=== PATIENT | female | born 1960 | race Two or more races ===

== ENCOUNTER 2020-09-05 21:12 | Inpatient (IN) | payer MEDICAID ==
[~2020-09-05] VITALS: Ht 162.6 cm; Wt 82.6 kg
[2020-09-05] MEDS ORDERED: NICARDIPINE 40MG/200ML PREMIX 200 ML IV STA (21:27)
[2020-09-05] MEDS ORDERED: PROPOFOL 10MG/ML 100ML 100 ML IV STA (21:27)
[2020-09-05] MEDS ORDERED: ETOMIDATE 2MG/ML 10ML VIAL IV ONE (21:30)
[2020-09-05] MEDS ORDERED: LEVETIRACETAM 500MG PREMIX 100 ML IV ONE (21:30)
[2020-09-05] MEDS ORDERED: SODIUM CHLORIDE 0.9% 10ML VIAL ONE (21:30)
[2020-09-05] MEDS ORDERED: VECURONIUM BROMIDE 10 MG/VIAL IV ONE (21:30)
[2020-09-05] MEDS ORDERED: NICARDIPINE 100 MG in SODIUM CHLORIDE 0.9% 60 ML IV PRN (22:45)
[2020-09-05] MEDS ORDERED: MORPHINE SULFATE 2 MG/ML CPJ (NOT FOR IM USE) IV PRN (22:45)
[2020-09-05] MEDS ORDERED: DEXAMETHASONE 10 MG/ML VIAL IV ONE (23:00)
[2020-09-05] MEDS: DEXT 5%/LACTATED RINGERS 1,000 ML IV SCH (23:00)
[2020-09-05] MEDS ORDERED: MANNITOL 20% (20GM/100ML) BAG 500ML PREMIX IV NR (23:00)
[2020-09-05] MEDS ORDERED: IOHEXOL-350 100 ML BOTTLE ONE (23:08)
[2020-09-05 23:33] LABS: BG CARBOXYHEMOGLOBIN 0.3 % (0.5-1.5); BG DEOXYHEMOGLOBIN 0.4 % (0.0-5.0); BG FRACTION INSPIRED OXYGEN 100; BG HCO3 ACT 26.4 mmol/L (22.0-26.0); BG METHEMOGLOBIN 0.5 % (0.0-1.5); BG OXYGEN SATURATION 99.6 % (92.0-98.5); BG OXYHEMOGLOBIN 98.8 % (94.0-97.0); BG PH 7.349 (7.350-7.450); BG PO2 336.4 mmHg (75.0-100.0); BG SAMPLE SITE LEFT RADIAL; BG TOTAL HEMOGLOBIN 16.4 g/dL (12.0-18.0); BG VENT MODE VENT - AC
[2020-09-05 23:50] LABS: HEMATOCRIT. 47.3 % (36.0-48.0); HEMOGLOBIN. 15.4 g/dL (12.0-16.0); MEAN CORPUSCULAR HEMOGLOBIN 31.2 pg (28.0-32.0); MEAN CORPUSCULAR VOLUME 95.9 fL (81.0-99.0); MEAN PLATELET VOLUME 10.1 fl (7.4-10.4); PLATELET 264 x1000/uL (130-400); RED BLOOD CELL COUNT 4.94 mill/uL (4.2-5.4); RED CELL DISTRIBUTION WIDTH 13.7 % (11.6-14.6)
[2020-09-05 23:53] LABS: CHLORIDE 103 mEq/L (98-107)
[2020-09-05 23:57] LABS: PARTIAL THROMBOPLASTIN TIME 25.6 sec (23.4-31.0); PROTHROMBIN TIME 10.6 sec (9.6-11.0)
[2020-09-06] VITALS (52 sets, daily range): BP systolic 0–146; BP diastolic -3–96
[2020-09-06 01:11] LABS: CLARITY URINE CLEAR (CLEAR); COLOR URINE YELLOW (YELLOW); KETONES URINE NEGATIVE (NEGATIVE); LEUKOCYTE ESTERASE URINE NEGATIVE (NEGATIVE); NITRITE URINE NEGATIVE (NEGATIVE); OCCULT BLOOD URINE TRACE (NEGATIVE); PH URINE 6.5 (4.5-8.0); PROTEIN URINE 2+ (NEGATIVE); SPECIFIC GRAVITY URINE 1.021 (1.005-1.030); UROBILINOGEN URINE 0.2 E.U./dL (0.2-1.0)
[2020-09-06] MEDS: DEXAMETHASONE 4MG/ML 1ML VIAL IV SCH ×4 (02:00→23:23)
[2020-09-06 04:13] LABS: ATYPICAL LYMPHOCYTES 2
[2020-09-06 04:14] LABS: PLATELET ESTIMATE NORMAL
[2020-09-06] MEDS ORDERED: NICARDIPINE 100 MG in SODIUM CHLORIDE 0.9% 60 ML IV PRN ×2 (07:30→10:00)
[2020-09-06] MEDS ORDERED: MORPHINE SULFATE 2 MG/ML CPJ (NOT FOR IM USE) IV SCH (08:15)
[2020-09-06] MEDS ORDERED: ONDANSETRON HCL 4MG/2ML INJ IV PRN (09:45)
[2020-09-06] MEDS: PANTOPRAZOLE SODIUM 40 MG/VIAL IV SCH (10:21)
[2020-09-06] MEDS: LEVETIRACETAM 500MG PREMIX 100 ML IV SCH ×2 (11:47→23:21)
[2020-09-06] MEDS: ACETAMINOPHEN 650MG/20.3ML UDC PO PRN ×2 (11:47→21:21)
[2020-09-06] MEDS: NICARDIPINE 100 MG in SODIUM CHLORIDE 0.9% 60 ML IV PRN (15:47)
[2020-09-06] MEDS: DEXT 5%/LACTATED RINGERS 1,000 ML IV SCH (17:26)
[2020-09-06] MEDS: MORPHINE SULFATE 2 MG/ML CPJ (NOT FOR IM USE) IV PRN (21:20)
[2020-09-07] VITALS (90 sets, daily range): BP systolic -1–173; BP diastolic -1–90
[2020-09-07] MEDS: ACETAMINOPHEN 650MG/20.3ML UDC PO PRN ×3 (03:35→22:23)
[2020-09-07] MEDS: MORPHINE SULFATE 2 MG/ML CPJ (NOT FOR IM USE) IV PRN ×3 (03:47→21:39)
[2020-09-07] MEDS: DEXAMETHASONE 4MG/ML 1ML VIAL IV SCH ×3 (05:34→17:52)
[2020-09-07 06:23] LABS: BASOPHILS % 0.1 % (0.0-2.0); HEMOGLOBIN. 14.4 g/dL (12.0-16.0); MEAN CORPUSCULAR HEMOGLOBIN 31.8 pg (28.0-32.0); MEAN CORPUSCULAR VOLUME 94.8 fL (81.0-99.0); MEAN PLATELET VOLUME 9.9 fl (7.4-10.4); MONOCYTES % 3.7 % (2.0-8.0); NEUTROPHILS % 87.2 % (40.0-76.0); PLATELET 205 x1000/uL (130-400); RED BLOOD CELL COUNT 4.53 mill/uL (4.2-5.4); RED CELL DISTRIBUTION WIDTH 14.2 % (11.6-14.6)
[2020-09-07 06:33] LABS: CHLORIDE 108 mEq/L (98-107)
[2020-09-07] MEDS: DEXT 5%/LACTATED RINGERS 1,000 ML IV SCH (08:43)
[2020-09-07] MEDS: PANTOPRAZOLE SODIUM 40 MG/VIAL IV SCH (08:43)
[2020-09-07] MEDS: LEVETIRACETAM 500MG PREMIX 100 ML IV SCH ×2 (09:50→21:50)
[2020-09-07] MEDS ORDERED: POTASSIUM CHLORIDE INJ 40 MEQ in DEXT 5% WATER 500 ML IV SCH (10:00)
[2020-09-07] MEDS ORDERED: IOHEXOL-300 100 ML BOTTLE ONE (21:28)
[2020-09-07] MEDS: NICARDIPINE 100 MG in SODIUM CHLORIDE 0.9% 60 ML IV PRN (22:00)
[2020-09-08] VITALS (98 sets, daily range): BP systolic 4–157; BP diastolic 4–78
[2020-09-08] MEDS: DEXAMETHASONE 4MG/ML 1ML VIAL IV SCH ×3 (00:21→11:11)
[2020-09-08] MEDS: MORPHINE SULFATE 2 MG/ML CPJ (NOT FOR IM USE) IV PRN ×3 (02:35→17:06)
[2020-09-08] MEDS: DEXT 5%/LACTATED RINGERS 1,000 ML IV SCH ×2 (08:01→23:12)
[2020-09-08] MEDS: LEVETIRACETAM 500MG PREMIX 100 ML IV SCH ×2 (08:57→21:51)
[2020-09-08] MEDS: PANTOPRAZOLE SODIUM 40 MG/VIAL IV SCH (08:57)
[2020-09-08] MEDS: ACETAMINOPHEN 650MG/20.3ML UDC PO PRN ×2 (11:25→22:14)
[2020-09-08] MEDS: NICARDIPINE 100 MG in SODIUM CHLORIDE 0.9% 60 ML IV PRN ×2 (12:16→19:05)
[2020-09-08 12:32] LABS: CHLORIDE 110 mEq/L (98-107)
[2020-09-08] MEDS: MORPHINE SULFATE 4 MG/ML CPJ (NOT FOR IM USE) IV PRN ×2 (18:58→22:01)
[2020-09-08] MEDS: IPRATROPIUM/ALBUTEROL 0.5-3(2.5)MG/3ML NEB HHN SCH (20:52)
[2020-09-08] MEDS: PROPOFOL 10MG/ML 100ML 100 ML IV PRN (23:13)
[2020-09-09] VITALS (109 sets, daily range): BP systolic 1–145; BP diastolic 1–77
[2020-09-09] MEDS: MORPHINE SULFATE 2 MG/ML CPJ (NOT FOR IM USE) IV PRN ×2 (01:53→09:36)
[2020-09-09] MEDS: NICARDIPINE 100 MG in SODIUM CHLORIDE 0.9% 60 ML IV PRN ×2 (01:53→09:32)
[2020-09-09] MEDS: MORPHINE SULFATE 4 MG/ML CPJ (NOT FOR IM USE) IV PRN ×2 (03:09→06:16)
[2020-09-09] MEDS: PROPOFOL 10MG/ML 100ML 100 ML IV PRN ×2 (04:55→08:21)
[2020-09-09 05:15] LABS: CHLORIDE 110 mEq/L (98-107)
[2020-09-09 06:21] LABS: HEMATOCRIT. 44.2 % (36.0-48.0); HEMOGLOBIN. 14.6 g/dL (12.0-16.0); MEAN CORPUSCULAR HEMOGLOBIN 31.7 pg (28.0-32.0); PLATELET 209 x1000/uL (130-400); RED CELL DISTRIBUTION WIDTH 13.9 % (11.6-14.6)
[2020-09-09 07:24] LABS: BG BASE EXCESS -3.3 mmol/L (-2.0-2.0); BG CARBOXYHEMOGLOBIN 0.6 % (0.5-1.5); BG DEOXYHEMOGLOBIN 2.2 % (0.0-5.0); BG FRACTION INSPIRED OXYGEN 50; BG HCO3 ACT 19.8 mmol/L (22.0-26.0); BG METHEMOGLOBIN 0.6 % (0.0-1.5); BG OXYGEN SATURATION 97.8 % (92.0-98.5); BG OXYHEMOGLOBIN 96.6 % (94.0-97.0); BG PCO2 30.8 mmHg (35.0-45.0); BG PH 7.427 (7.350-7.450); BG PO2 100.5 mmHg (75.0-100.0); BG SAMPLE SITE RIGHT RADIAL; BG TOTAL HEMOGLOBIN 15.1 g/dL (12.0-18.0); BG VENT MODE VENT - AC
[2020-09-09] MEDS: IPRATROPIUM/ALBUTEROL 0.5-3(2.5)MG/3ML NEB HHN SCH ×2 (07:56→15:34)
[2020-09-09] MEDS ORDERED: FENTANYL CITRATE/PF 2,500 MCG in SODIUM CHLORIDE 0.9% 200 ML IV PRN (08:00)
[2020-09-09] MEDS: LEVETIRACETAM 500MG PREMIX 100 ML IV SCH ×2 (08:13→20:59)
[2020-09-09] MEDS: PANTOPRAZOLE SODIUM 40 MG/VIAL IV SCH (08:13)
[2020-09-09] MEDS ORDERED: CEFEPIME 1,000 MG in DEXTROSE 5% WATER 50 ML IV SCH (10:00)
[2020-09-09] MEDS ORDERED: DEXTROSE 50% WATER 50ML SYRINGE IV PRN (10:00)
[2020-09-09] MEDS: ACETAMINOPHEN 650MG/20.3ML UDC PO PRN (10:37)
[2020-09-09] MEDS ORDERED: DIGOXIN 500MCG/2ML AMP IV NR (11:00)
[2020-09-09] MEDS: CEFEPIME 1,000 MG in DEXTROSE 5% WATER 50 ML IV SCH ×2 (11:07→21:02)
[2020-09-09] MEDS: BLOOD SUGAR DIAGNOSTIC STRIP TEST SCH ×2 (12:00→18:08)
[2020-09-09] MEDS: INSULIN LISPRO 100 UNITS/ML SUBCUT SCH ×3 (13:00→21:00)
[2020-09-09] MEDS ORDERED: PROPOFOL 10MG/ML 100ML 100 ML IV PRN (13:45)
[2020-09-09 17:12] LABS: PLATELET ESTIMATE NORMAL
[2020-09-09] MEDS ORDERED: SODIUM CHLORIDE 0.9% 500 ML IV ONE (18:00)
[2020-09-09] MEDS: DOPAMINE 400MG/250ML PREMIX 250 ML IV PRN (18:11)
[2020-09-09] MEDS ORDERED: SODIUM CHLORIDE 0.9% 500 ML IV NR (18:30)
[2020-09-09] MEDS: PHENYLEPHRINE 50 MG in DEXT 5% WATER 245 ML IV PRN ×2 (19:52→23:58)
[2020-09-09] MEDS ORDERED: METOPROLOL TARTRATE 25MG TABLET PO SCH (21:00)
[2020-09-09] MEDS: VASOPRESSIN 20 UNIT in SODIUM CHLORIDE 0.9% 99 ML IV PRN (22:26)
[2020-09-10] VITALS (100 sets, daily range): BP systolic 60–168; BP diastolic 14–131
[2020-09-10] MEDS: IPRATROPIUM/ALBUTEROL 0.5-3(2.5)MG/3ML NEB HHN SCH ×3 (00:26→15:49)
[2020-09-10] MEDS: DEXT 5%/LACTATED RINGERS 1,000 ML IV SCH ×2 (01:18→15:34)
[2020-09-10 01:36] LABS: BG BASE EXCESS -10.3 mmol/L (-2.0-2.0); BG CARBOXYHEMOGLOBIN 0.1 % (0.5-1.5); BG DEOXYHEMOGLOBIN 10.3 % (0.0-5.0); BG FRACTION INSPIRED OXYGEN 100; BG HCO3 ACT 16.1 mmol/L (22.0-26.0); BG METHEMOGLOBIN 0.3 % (0.0-1.5); BG OXYGEN SATURATION 89.7 % (92.0-98.5); BG OXYHEMOGLOBIN 89.3 % (94.0-97.0); BG PCO2 37.7 mmHg (35.0-45.0); BG PH 7.249 (7.350-7.450); BG PO2 60.4 mmHg (75.0-100.0); BG SAMPLE SITE RIGHT RADIAL; BG TOTAL HEMOGLOBIN 17.1 g/dL (12.0-18.0); BG VENT MODE VENT - AC
[2020-09-10] MEDS: PHENYLEPHRINE 100 MG in DEXT 5% WATER 240 ML IV PRN ×4 (03:27→23:13)
[2020-09-10] MEDS: ACETAMINOPHEN 650MG/20.3ML UDC PO PRN ×3 (03:31→07:12)
[2020-09-10] MEDS: NOREPINEPHRINE 32 MG in DEXT 5% WATER 218 ML IV PRN ×2 (04:05→19:11)
[2020-09-10] MEDS: MORPHINE SULFATE 4 MG/ML CPJ (NOT FOR IM USE) IV PRN (05:14)
[2020-09-10] MEDS: VASOPRESSIN 20 UNIT in SODIUM CHLORIDE 0.9% 99 ML IV PRN ×3 (05:18→23:12)
[2020-09-10] MEDS: BLOOD SUGAR DIAGNOSTIC STRIP TEST SCH ×5 (05:57→23:11)
[2020-09-10] MEDS: INSULIN LISPRO 100 UNITS/ML SUBCUT SCH ×3 (07:43→17:59)
[2020-09-10] MEDS: CEFEPIME 1,000 MG in DEXTROSE 5% WATER 50 ML IV SCH ×2 (08:12→20:31)
[2020-09-10] MEDS: PANTOPRAZOLE SODIUM 40 MG/VIAL IV SCH (08:12)
[2020-09-10] MEDS: LEVETIRACETAM 500MG PREMIX 100 ML IV SCH ×2 (08:12→20:31)
[2020-09-10 12:03] LABS: BG BASE EXCESS -12.8 mmol/L (-2.0-2.0); BG CARBOXYHEMOGLOBIN 0.1 % (0.5-1.5); BG DEOXYHEMOGLOBIN 13.7 % (0.0-5.0); BG FRACTION INSPIRED OXYGEN 100; BG HCO3 ACT 16.8 mmol/L (22.0-26.0); BG METHEMOGLOBIN 0.6 % (0.0-1.5); BG OXYGEN SATURATION 86.2 % (92.0-98.5); BG OXYHEMOGLOBIN 85.6 % (94.0-97.0); BG PCO2 54.2 mmHg (35.0-45.0); BG PO2 57.5 mmHg (75.0-100.0); BG SAMPLE SITE RIGHT RADIAL; BG TOTAL HEMOGLOBIN 13.4 g/dL (12.0-18.0); BG TOTAL RESPIRATORY RATE 16 b/min; BG VENT MODE VENT - AC
[2020-09-10 12:56] LABS: HEMATOCRIT. 39.2 % (36.0-48.0); HEMOGLOBIN. 12.6 g/dL (12.0-16.0); MEAN CORPUSCULAR HEMOGLOBIN 31.6 pg (28.0-32.0); MEAN CORPUSCULAR VOLUME 98.6 fL (81.0-99.0); RED BLOOD CELL COUNT 3.97 mill/uL (4.2-5.4); RED CELL DISTRIBUTION WIDTH 15.3 % (11.6-14.6)
[2020-09-10] MEDS ORDERED: SODIUM BICARBONATE 8.4% 1 MEQ/ML 50ML SYR IV SCH (13:00)
[2020-09-10 14:12] LABS: NUCLEATED RED BLOOD CELLS 3 /100 WBC
[2020-09-10 14:14] LABS: PLATELET ESTIMATE MARKEDLY DECREASED
[2020-09-10 14:18] LABS: MEAN PLATELET VOLUME 9.4 fl (7.4-10.4); PLATELET 29 x1000/uL (130-400)
[2020-09-10] MEDS ORDERED: MIDAZOLAM HCL 100 MG in SODIUM CHLORIDE 0.9% 100 ML IV PRN (17:30)
[2020-09-10] MEDS ORDERED: MIDAZOLAM 100MG/100ML PMX 100 ML IV PRN (17:30)
[2020-09-10] MEDS ORDERED: ADENOSINE 3 MG/ML 2ML VIAL IV ONE (17:50)
[2020-09-10] MEDS ORDERED: CALCIUM CHLORIDE 1GM/10ML SYR IV ONE (17:50)
[2020-09-10] MEDS ORDERED: EPINEPHRINE 0.1MG/ML (1:10,000) 10ML SYR ONE (17:50)
[2020-09-10] MEDS ORDERED: MAGNESIUM SULFATE 4G IN WATER 100ML PREMIX IV ONE (17:50)
[2020-09-10] MEDS ORDERED: SODIUM BICARBONATE 8.4% 1 MEQ/ML 50ML SYR IV ONE (17:50)
[2020-09-10] MEDS: DOPAMINE 400MG/250ML PREMIX 250 ML IV PRN (21:57)
[2020-09-11] VITALS: BP 94/44
[2020-09-11] MEDS ORDERED: INSULIN LISPRO 100 UNITS/ML SUBCUT SCH
[2020-09-11] MEDS ORDERED: SODIUM BICARBONATE 8.4% 1 MEQ/ML 50ML SYR IV ONE (00:05)
[2020-09-11] MEDS ORDERED: EPINEPHRINE 0.1MG/ML (1:10,000) 10ML SYR ONE (00:05)
== END 2020-09-11 09:06 | disposition expired | DRG 710 ==
LOC: ER 21:12 → 5EST 23:03 → ENRESERV 09-06 07:59
PROVIDERS: ADMIT Internal Medicine; ATTEND Internal Medicine
PROC: 0BH17EZ Insertion of Endotracheal Airway into Trachea, Via Natural or Artificial Opening (ICD-10-PCS; 2020-09-05)
PROC: 06HY33Z Insertion of Infusion Device into Lower Vein, Percutaneous Approach (ICD-10-PCS; 2020-09-05)
PROC: 5A1955Z Respiratory Ventilation, Greater than 96 Consecutive Hours (ICD-10-PCS; 2020-09-05)
PROC: 00H032Z Insertion of Monitoring Device into Brain, Percutaneous Approach (ICD-10-PCS; principal; 2020-09-06)
PROC: 4A103BD Monitoring of Intracranial Pressure, Percutaneous Approach (ICD-10-PCS; 2020-09-06)
PROC: 009630Z Drainage of Cerebral Ventricle with Drainage Device, Percutaneous Approach (ICD-10-PCS; 2020-09-06)
PROC: 5A12012 Performance of Cardiac Output, Single, Manual (ICD-10-PCS; 2020-09-10)
PROC: 5A12012 Performance of Cardiac Output, Single, Manual (ICD-10-PCS; 2020-09-11)
DX: A41.9 Sepsis, unspecified organism (principal); E66.9 Obesity, unspecified; E87.6 Hypokalemia; G91.1 Obstructive hydrocephalus; I61.3 Nontraumatic intracerebral hemorrhage in brain stem; I61.5 Nontraumatic intracerebral hemorrhage, intraventricular; R56.9 Unspecified convulsions; R65.21 Severe sepsis with septic shock; I46.9 Cardiac arrest, cause unspecified; J96.01 Acute respiratory failure with hypoxia; R40.2430 Glasgow coma scale score 3-8, unspecified time; J18.9 Pneumonia, unspecified organism; E87.4 Mixed disorder of acid-base balance; N17.0 Acute kidney failure with tubular necrosis; D69.6 Thrombocytopenia, unspecified; I16.9 Hypertensive crisis, unspecified; Z68.31 Body mass index [BMI] 31.0-31.9, adult
CPT/HCPCS: 36415; 36600; 70496; 70498; 71045; 80048; 80053; 81003; 82375; 82805; 82962; 83036; 83605; 83880; 84145; 84478; 84484; 85025; 86850; 86900; 93005; 94002; 94003; 94640; 94660; 96365; 99291; C9113; J0153; J0692; J1100; J1160; J1265; J1953; J2270; J2370; J2704; J3010; J3475; J3480; J3490; J7040; J7050; J7060; Q9967